=== PATIENT | male | born 1990 | race Caucasian/White ===

== ENCOUNTER 2025-02-05 10:17 | Emergency (ER) | payer SELFPAY ==
[2025-02-05 10:30] VITALS: BP 122/63; PULSE 75; RESP 20; TEMP 36.7; O2SAT 99
--- NOTE | 2025-02-05 11:13 | ED_ITS ---
HPI - Skin/Abscess/Foreign Bdy General Chief complaint: Skin/Abscess/Foreign Body Stated complaint: Insect Bite Time Seen by Provider: 02/05/25 11:14 Source: patient, RN notes reviewed and old records reviewed Mode of arrival: ambulatory Limitations: no limitations History of Present Illness HPI narrative: 34-year-old male presents to the [facility] with itchy bumps to the right forearm, right leg. States that he applied his daughter's eczema cream. States has been a couple of days. No cellulitic changes Related Data Allergies Allergy/AdvReac Type Severity Reaction Status Date / Time neomycin Allergy Mild Other Verified 02/05/25 10:36 Review of Systems Review of Systems: All systems reviewed & are unremarkable except as noted in HPI and below Constitutional: Constitutional: Reports no additional constitutional complaints ENT: Reports system reviewed and no additional complaints, except as documented Cardiovascular: Cardiovascular: Reports no additional cardiovascular complaints, Denies chest pain and Denies dyspnea Respiratory: Respiratory: Reports no additional respiratory complaints, Denies chest congestion, Denies cough and Denies dyspnea Musculoskeletal: Musculoskeletal: Reports no additional musculoskeletal complaints Integumentary/Breasts: Skin/Breast: Reports as per HPI PMFSH Comments At the time of my signature, I reviewed and agree with the nursing past medical, surgical, social, and family history. There is no relevant family history pertinent to the patient complaint. Exam Const: General: cooperative, healthy appearing, comfortable, no acute distress, well developed, alert and well nourished Nutritional Appearance: well nourished Orientation/consciousness: patient oriented x3 Limitations: no limitations HENMT: Head: normal to inspection Eyes: General: appearance normal, both eyes and all related structures Alignment and Position: alignment normal Neck: Neck: normal visual inspection, full ROM, no lymphadenopathy and no meningeal signs Chest: Chest palpation & inspection: normal inspection of the chest Resp: Effort & Inspection: normal respiratory effort and able to speak in complete sentences Auscultation: clear to auscultation bilaterally, no crackl es, no rales, no rhonchi and no wheezes Cardio: Rate: regular rate Skin: General skin exam: normal color and no rashes or lesions noted Other: Multiple red, raised, not warm bumps consistent with insect bites. Right leg, right forearm. Neuro: General: patient oriented x3, gait normal, moves all extremities and no meningeal signs Cognition (Neuro): normal cognition Speech: normal speech Gait exam (Neuro): Normal gait present Extrem: General: normal to inspection, full ROM, capillary refill normal and normal gait Psych: Appearance: grossly normal and well kempt Mental Status: mental status grossly normal Speech and movement: Normal speech and movement present and Clear speech present Affect: normal affect Attitude: cooperative Course Course Level of Care: Express Care Visit Vital Signs Vital signs: Vital Signs Temperature 98.1 F 02/05/25 10:30 Pulse Rate 75 02/05/25 10:30 Respiratory Rate 20 02/05/25 10:30 Blood Pressure 122/63 02/05/25 10:30 Pulse Oximetry 99 02/05/25 10:30 Oxygen Delivery Room Air 02/05/25 10:30 Temperature 98.1 F 02/05/25 10:30 Pulse Rate 75 02/05/25 10:30 Respiratory Rate 20 02/05/25 10:30 Blood Pressure 122/63 02/05/25 10:30 Pulse Oximetry 99 02/05/25 10:30 Oxygen Delivery Room Air 02/05/25 10:30 Reviewed MDM - Skin/Abscess/Foreign Bdy MDM Narrative Medical decision making narrative: Patient sitting in exam room. Nontoxic, vitals stable. Patient in no acute distress. Patient presents with itchy bumps to the arm and leg. Consistent with insect bites Patient appropriate for outpatient treatment and follow-up Discharge instructions reviewed with patient, as well as provided in writing per nursing staff. The instructions also include specific and strict return/GO TO THE ER as well as f/u information. All questions have been answered, and the patient deny any further questions with discharge and discharge plan. Some parts of this dictation were generated by voice recognition software and may contain typographical and/or grammatical inaccuracies. Differential Diagnosis Differential diagnosis: Likely abscess of skin or subcutaneous tissue, urticaria, cellulitis, eczema, insect bites, impetigo and contact dermatitis Critical Care Time Critical Care Time Critical Care Time: No Discharge Plan Discharge Clinical Impression: Insect bites Patient Disposition: Home Condition: Stable Instructions: Antibiotic Form, Insect Bite or Sting (ED) Additional Instructions: The most important part of your care is follow up with Primary care provider. Take Benadryl 25-50 mg every 8 hours for itching Take Zyrtec every day Take Pepcid 20mg daily for 7 days You can use the steroid cream 3 times a day. Use sparingly. Avoid hot showers, Take cool showers. Hot showers will make rashes worse Apply cool compresses every 2-3 hours for 15 minutes Go to the ER for new or worsening symptoms such as shortness of breath. Patient Language: Telugu Prescriptions: New triamcinolone acetonide 0.1 % cream 1 applic topical TID Qty: 30 0RF Follow-up/Referrals: Rg Porter MD [Physician] - Stand Alone Forms: Work/School Release IP Time of Disposition: 11:24
== END 2025-02-05 11:30 | disposition home or self-care (01) ==
PROVIDERS: Emergency Provider Nurse Practitioner; PCP Orthopaedic Surgery
DX: S50.861A Insect bite (nonvenomous) of right forearm, initial encounter (principal); S80.861A Insect bite (nonvenomous), right lower leg, initial encounter; W57.XXXA Bitten or stung by nonvenomous insect and other nonvenomous arthropods, initial encounter
CPT/HCPCS: 99213; G0463

== ENCOUNTER 2025-04-07 08:11 | Emergency (ER) | payer OTHER, MEDICAID, SELFPAY ==
--- NOTE | ~2025-04-07 | CT_ITS ---
History: Low back pain PROCEDURE: CT lumbar spine without intravenous contrast. COMPARISON: None TECHNIQUE: Multiple contiguous axial images of the lumbar spine were performed without the administration of int ravenous contrast. DLP: 457 mGy-cm FINDINGS: Straightening of the normal lordotic curvature of the lumbar spine is identified, possibly muscular i n origin. No acute compression fractures are present. No soft tissue abnormality is noted. From the level of T12-L3: No significant disc protrusion is identified. At the level of L3/L4: Is a broad-based disc protrusion with trace mass effect on the spinal canal an d bilateral neural foramen. At the level of L4/L5: Is a right paracentral disc protrusion with trace mass effect on the right chau ral foramen. At the level of L5/S1: Is a right paracentral disc protrusion with mass effect on the right neural fo ramen. Impression: Multilevel degenerative disc disease, without acute fracture. Reviewed, dictated and finalized at location A. Impression: Multilevel degenerative disc disease, without acute fracture.
--- OUTSIDE RECORDS SUMMARY | 2025-04-07 08:15 | XMS_ITS | Data Portability ---
Author Organization [place] - [facility], [facility] Address [address] [place] [address] Assessment Encounter Date Assessment Date Assessment LastModified by Organization Details LastModified Time 04/10/2023 04/10/2023 MRI Lumbar Spine 04/04/23 ([facility]) No herniation or nerve compression [email or web address] Not available 04/10/2023 08:49:56 Plan of Treatment Reminders Order Date Submit Date Provider Last Modified By Organization Details Last Modified Time Details Appointments None record ed. Lab None record ed. Referral None record ed. Procedures None record ed. Surgeries None record ed. Imaging MRI, lumbar spine, w/o contra st - Please evalua te lumbar spine for HNP, stenos is, or nerve imping ement 2022 023 jose so [facility] [address], [address], [place], [address], 3 13:54:43 XR, lumbos acral spine, 2 or 3 view 2022 023 phofrichter [facility], [address] [place], [address], Ph [phone] 3 11:06:53 Medication Orders Medrol (Esequiel) 4 mg tablet s in a dose pack 2022 023 phofrichter [facility] [address], [address], [place], [address], 3 11:06:53 Patient TargetsNo targets recorded. Patient Instructions Encounter Date Encounter Id Patient Instructions Last Modified By Organization Details Last Modified Time 03/27/2023 [id number] learning about healthy weight phofrichter Not available 03/27/2023 11:06:53 smoking cessation counseling phofrichter Not available 03/27/2023 11:06:53 Reason for Referral None Reported. Results Created Date Observation Date Name Description Value Unit Range Abnormal Flag Note LastModifiedBy Organization Detail LastModifiedTime 03/27/20 23 XR, lumbo sacra l spine , 2 or 3 view No observ ation record ed. mcarabes [facility] [address] [place], [address], Ph [phone] 03/27/2023 10:02:15 04/04/20 23 MRI, lumba r spine , w/o contr ast No observ ation record ed. [email or web address] [facility] [address] [address] [facility] [address], [place], [address], 04/04/2023 17:13:29 Result Notes None recorded. Medical Equipment None Reported. Allergies Allergen ID Allergen Name Allergen Category Reaction Reaction Severity Criticality Documentation Date Start Date Code Code System Note Provider Name and Address Organization Details Recorded Time 937666 bacitraci n / neomycin / polymyxin B medicatio n Not available Not available Not available 03/27/2023 69404 9 RxNorm Manju Goldberg [facility] 10:01:33 Medications Name Sig Start Date Stop Date Status Note LastModified by Organization Details LastModified Time cyclobenzaprin e 10 mg tablet TAKE 1 TABLET BY MOUTH THREE TIMES DAILY FOR 10 DAYS NEEDED active Not Available Not Available No t Available prednisone 20 mg tablet TAKE 3 TABLETS BY MOUTH ONCE DAILY FOR 5 DAYS active Not Available Not Available No t Available methylpredniso lone 4 mg tablets in a dose pack TAKE BY MOUTH DIRECTED ON INSIDE OF PACKAGE active Not Available Not Available No t Available naproxen 500 mg tablet TAKE 1 TABLET BY MOUTH TWICE DAILY FOR 10 DAYS active Not Available Not Available No t Available Vitals Date Recorded Body height Body mass index (BMI) Body weight Provider Name and Address Organization Details Last Updated DateTime 03/27/2023 182.88 cm 29.8 kg/m2 10954.32 g Manju Goldberg [facility] 03/27/2023 10:01:23 Date Recorded Body height Body mass index (BMI) Body weight Provider Name and Address Organization Details Last Updated DateTime 04/10/2023 182.88 cm 29.8 kg/m2 41232.32 lin Velásquez, [facility] [address], [place], [address], [facility] 04/10/2023 08:43:16 Social History Question Answer Notes LastModified by Organizat ion Details LastModified Time Tobacco Smoking Status Smoker, Current Status Unknown Manju robledo, [facility] 03/27/2023 10:10:19 How Much Tobacco Do You Chew? None Information not available 03/27/2023 Which Illicit Or Recreational Drugs Have You Used? None Information not available 03/27/2023 Who Is Your Employer? [employer] Information not available 03/27/2023 Are You On Disability Or Applying For It? No Information not available 03/27/2023 Employment Status Full-time Informa tion not available 03/27/2023 Last Day Of Work 03/13/2023 Informat ion not available 03/27/2023 What Was The Date Of Your Most Recent Tobacco Screening? 03/27/2023 Information not available 03/27/2023 How Much Tobacco Do You Smoke? No Information not available 03/27/2023 Has Tobacco Cessation Counseling Been Provided? Yes Information not available 03/27/2023 On What Date Was Tobacco Cessation Counseling Provided? 03/27/2023 Information not available 03/27/2023 Sex: Unknown Functional Status Question Answer Note LastModified by Organizat ion Details LastModified Time Do you use any illicit or recreational drugs? No Information not available 03/27/2023 Do you or have you ever used any other forms of tobacco or nicotine? Yes Information not available 03/27/2023 What is your level of alcohol consumption? Moderate Information not available 03/27/2023 Do you or have you ever used smokeless tobacco? 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 Current user of electronic cigarettes Information not available 03/27/2023 Mental Status None recorded. Family History Nothing Reported. Medical History No medical history recorded. Past Encounters Encounter ID Performer Location Encounter Start Date Encounter Closed Date Diagnosis/Indication Diagnosis SNOMED-CT Code Diagnosis ICD10 Code Diagnosis Note [id number] Joshua Junior MD [facility] [address] [place] [address] 03/27/2023 09:22:42 03/27/2023 10:21:48 Low back pain 433355571 M54.50 Tobacco us e cessation education 167057540 Z71.6 Lumbar radiculopathy 128 282566 M54.16 Lumbar spondylosis 88767 0009 M47.896 Clinical and radiograph ical findings were discussed at length with the patient. All questions were answered. We will initiate treatment with conservati ve management of symptoms. I have advised the patient to use Tylenol or prescribed medication s to reduce pain and swelling as needed and initiate with activity modificati on. I have advised the patient to continue use of ice, massage, NSAIDS (if tolerated) , routine exercises, medication , and activity modificati on to reduce pain and swelling as needed for best progressio n. My impression and thoughts were discussed with the patient. I would like to obtain additional diagnostic studies prior to discussing further treatment options. I have ordered a MRI of the L-spine to evaluate for HNP, stenosis, or nerve impingemen t. We will see them back shortly after the studies are obtained to review and discuss the results. They have been advised to bring the MRI CD and report if available. I have prescribed a Medrol dose esequiel 4mg to assist in reducing pain and inflammati on. Patient will follow up in 2-3 weeks for a diagnostic review of the lumbar spine. Increased body mass index 26473442 E66.3 Patient was educated about healthy weight [id number] Joshua Junior MD [facility] [address] [facility] [address] [place] [address] 04/04/2023 08:36:04 04/04/2023 10:06:16 [id number] Joshua Junior MD [facility] [address] [place] [address] 04/10/2023 08:34:57 04/10/2023 10:33:16 Low back pain 769099572 M54.50 The patient's clinical and radiograph ic findings were discussed in detail with the patient. All questions were answered. I have recommende d that the patient continue to be treated conservati vely. I have advised the patient to continue use of ice, heat and NSAIDS to reduce pain as needed and continue with home exercises. The patient was encouraged to walk and exercise regularly. The patient will follow up as needed. Health Concerns Section Related Observation LastModified by Organization Detai ls LastModified Time None Recorded Concern Status LastModified by Organization Details LastModified Time None Recorded Advance Directives Directive None Recorded Payers Insurance Date Sequence Insurance Name Policy Number Policy Isaac Covered Member ID Isaac Member ID Guarantor Name 04/07/2023 1 [facility] [id number] Robin Miller [id number] Mandaen Miller Notes Date Note Type Note Provider Name and Address Organization Details Recorded Time 03/27/2023 text/html Lumbar SpineReported bypatient.Notes:Mr. Miller presents to clinic for evaluation of his lumbar spine, symptoms onset most prominent 1 month, without history of accident or injury. Patient states he went to put his daughter down, and he began to experience low back pain since. He was unable to stand and had severe pain, to which he had to attend the ER at [facility] that same day, and was given prescription medications. He occasionally uses a cane for gait assistance. He reports pain across his left lower back and left knee. He reports radiating pain along the lateral aspect of his RLE, stopping at the mid calf. He reports associated N/T along RACHAEL LE to the foot. He reports being unable to stand without severe pain, and also notes prolonged sitting as an aggravating factor. He was taking ibuprofen, cyclobenzaprine, prednisone, and naproxen with minimal benefit. He denies recent PT. He denies a recent MRI. He denies prior injection. He denies prior surgery. Schuyler Velásquez, [facility] [address], [place], [address], [facility] 03/27/2023 10:30:21 04/10/2023 text/html Lumbar SpineReported bypatient.Notes:Mr. Miller presents to clinic for re-evaluation of his lumbar spine and DR of LUMBAR SPINE MRI. He reports that last Friday he woke up and there was no more pain. Prior Intake:He previously reported that symptoms onset most prominent 1 month, without history of accident or injury. Patient states he went to put his daughter down, and he began to experience low back pain since. He was unable to stand and had severe pain, to which he had to attend the ER at [facility] that same day, and was given prescription medications. He occasionally uses a cane for gait assistance. He reports pain across his left lower back and left knee. He reports radiating pain along the lateral aspect of his RLE, stopping at the mid calf. He reports associated N/T along RACHAEL LE to the foot. He reports being unable to stand without severe pain, and also notes prolonged sitting as an aggravating factor. He was taking ibuprofen, cyclobenzaprine, prednisone, and naproxen with minimal benefit. He denies recent PT. He denies a recent MRI. He denies prior injection. He denies prior surgery. Schuyler Velásquez, [facility] [address], [place], [address], [facility] 04/10/2023 08:50:08
[2025-04-07 08:18] VITALS: BP 132/91; PULSE 73; RESP 20; TEMP 36.7; O2SAT 100
--- NOTE | 2025-04-07 08:33 | ED_ITS ---
HPI - Back Pain/Injury General Chief Complaint: Back Pain/Injury Stated Complaint: back pain Time Seen by Provider: 04/07/25 08:24 History of Present Illness HPI Narrative: Pt presents with pain in low back for two weeks. Pt says his left leg has some intermittent tingling but has no problems with bladder or bowels. Pt has some chronic intermitent issues with low back and has a bulging disc at L5. 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 Pt has been taking ib uprofen without relief. Related Data Allergies Allergy/AdvReac Type Severity Reaction Status Date / Time neomycin Allergy Mild Other Verified 04/07/25 08:18 prednisone AdvReac Intermediate Vomiting Verified 04/07/25 08:18 Review of Systems Review of Systems: All systems reviewed & are unremarkable except as noted in HPI and below Exam Const: General: healthy appearing Nutritional Appearance: well nourished Orientation/consciousness: patient oriented x3 Limitations: no limitations Resp: Effort & Inspection: normal respiratory effort Auscultation: clear to auscultation bilaterally Cardio: Rate: regular rate Rhythm: regular rhythm GI: Auscultation: normal bowel sounds Back/Spine/Pelvis: Back: no CVA tenderness Other: tender lumbar area l5 on left with some spasm Skin: General skin exam: normal color Rashes: no rashes Wounds: no wounds Neuro: General: patient oriented x3 and moves all extremities Speech: normal speech Extrem: General: normal to inspection and no clubbing, cyanosis or edema Psych: Mental Status: mental status grossly normal Affect: normal affect Attitude: cooperative Course Vital Signs Vital signs: Vital Signs Temperature 98.0 F 04/07/25 08:18 Pulse Rate 73 04/07/25 08:18 Respiratory Rate 20 04/07/25 08:18 Blood Pressure 132/91 H 04/07/25 08:18 Pulse Oximetry 100 04/07/25 08:18 Oxygen Delivery Room Air 04/07/25 08:18 Temperature 98.0 F 04/07/25 08:18 Pulse Rate 61 04/07/25 10:43 Respiratory Rate 18 04/07/25 10:43 Blood Pressure 129/83 04/07/25 10:43 Pulse Oximetry 100 04/07/25 10:43 Oxygen Delivery Room Air 04/07/25 08:18 MDM - Back Pain/Injury MDM Narrative Medical decision making narrative: Pt presents with LB pain for two weeks getting worse. no signs of cauda equina but could be disc. Pt is quite uncomfortable. Will get CT lumbar spine and give some dilaudid and zofran and po valium. Pt feels better after meds. Able to ambulate with cane. Pt has numerous levels of disc protrusion on CT but no herniation. will send home on a few norco and valium. Pt says he can't take prednisone because it makes him vomit. will take ibuprofen 800 mg tid. wiill give neurosurg follow up. Discharge Plan Discharge Clinical Impression: Strain of lumbar region Patient Disposition: Home Condition: Improved Instructions: Antibiotic Form, Acute Low Back Pain (ED) Patient Language: Indonesian Prescriptions: New hydrocodone-acetaminophen 5-325 mg tablet 1 tablet PO Q6H PRN (Reason: pain) Qty: 10 0RF diazepam [Valium] 5 mg tablet 5 mg PO TID PRN (Reason: muscle spasm) Qty: 14 0RF No Action triamcinolone acetonide 0.1 % cream 1 applic topical TID Qty: 30 0RF Follow-up/Referrals: Braxton Omer MD [Physician] - PHYSICIAN,PROJECT ADMINISTRATOR [Primary Care Provider] -
[2025-04-07] MEDS: KETOROLAC 15 MG/ML VIAL (*BKC) IV PUSH (08:38)
[2025-04-07] MEDS: ONDANSETRON INJ 4 MG/2 ML VIAL IV PUSH (08:38)
[2025-04-07] MEDS: HYDROmorphone HCL INJ (*CRX) 2 MG/ML VIAL 1 MG IV PUSH (08:38)
[2025-04-07] MEDS: diazePAM (*CRX) 5 MG TABLET PO (08:46)
[2025-04-07 10:43] VITALS: BP 129/83; PULSE 61; RESP 18; O2SAT 100
== END 2025-04-07 10:44 | disposition home or self-care (01) ==
PROVIDERS: Emergency Provider Emergency Medicine
DX: S39.012A Strain of muscle, fascia and tendon of lower back, initial encounter (principal); X58.XXXA Exposure to other specified factors, initial encounter
CPT/HCPCS: 72131; 96374; 96375; 99284; A9270; J1171; J1885; J2405